=== PATIENT | female | born 1960 | race Caucasian/White ===

== ENCOUNTER 2023-07-19 20:33 | Outpatient (REF) | payer BC, SELFPAY ==
[2023-07-25 09:11] LABS: Age Gdln ACOG Testing Note (.); HPV Aptima Negative (Negative); IGP, Aptima HPV, rfx 16/18,45 Note (.)
== END 2023-07-19 20:34 | disposition home or self-care (01) ==
LOC: LAB 20:33
PROVIDERS: Visit Provider Physician Assistant
DX: Z01.419 Encounter for gynecological examination (general) (routine) without abnormal findings (principal)
CPT/HCPCS: 87624; G0145

== ENCOUNTER 2023-09-07 10:10 | Outpatient (OUT) | payer BC, SELFPAY ==
--- NOTE | 2023-09-07 10:11 | MM_ITS ---
Patient Name: JULIANO YAP MR#: [id number] : 1960 Exam Date: 09/07/2023 Ordering Doctor: DR Oswaldo Carrillo . RADIOLOGY REPORT PROCEDURE: MM TOMOSYNTHESIS SCREENING BI COMPARISON: MG MAMM SCREEN 3D DAWIT CAD, 08/22/2022. MG MAMM SCREEN 3D DAWIT CAD, 08/05/2021. MG MAMM SCREEN 3D DAWIT CAD, 07/23/2020. MG MAMM SCREEN DAWIT W CAD, 09/03/2015. INDICATIONS: Screening Calculator Name NCI Breast Cancer Risk Assessment Tool 5 Year Breast Cancer Risk Not Reported. Lifetime Breast Cancer Risk Not Reported. Personal Breast Cancer No Personal Ovarian Cancer No Treatments None Family Cancers None LOCATION: [facility] BREAST COMPOSITION: The breasts are extremely dense, which lowers the sensitivity of mammography. FINDINGS: DIAGNOSTIC CATEGORY 1--NEGATIVE. RIGHT BREAST: No significant suspicious finding. No significant change has occurred. LEFT BREAST: No significant suspicious finding. No significant change has occurred. RECOMMENDATIONS: ROUTINE MAMMOGRAM AND CLINICAL EVALUATION IN 12 MONTHS. PLEASE NOTE: A NORMAL MAMMOGRAM DOES NOT EXCLUDE THE POSSIBILITY OF BREAST CANCER. A CLINICALLY SUSPICIOUS PALPABLE LUMP SHOULD BE BIOPSIED. Dictated by: Zaid Bethea M.D. on 09/07/2023 at 15:39 Approved by: Zaid Bethea M.D. on 09/07/2023 at 15:42
== END 2023-09-07 10:11 | disposition home or self-care (01) ==
LOC: MAMMO 10:10
PROVIDERS: Visit Provider Obstetrics & Gynecology
DX: Z12.31 Encounter for screening mammogram for malignant neoplasm of breast (principal)
CPT/HCPCS: 77063; 77067

== ENCOUNTER 2024-07-22 15:08 | Outpatient (REF) | payer BC, SELFPAY ==
[2024-07-25 15:08] LABS: Age Gdln ACOG Testing Note (.); HPV Aptima Negative (Negative); IGP, Aptima HPV, rfx 16/18,45 Note (.)
== END 2024-07-22 15:09 | disposition home or self-care (01) ==
LOC: LAB 15:08
PROVIDERS: Visit Provider Physician Assistant
DX: Z01.419 Encounter for gynecological examination (general) (routine) without abnormal findings (principal)
CPT/HCPCS: 88175

== ENCOUNTER 2024-09-12 08:58 | Outpatient (OUT) | payer OTHER, SELFPAY ==
--- OUTSIDE RECORDS SUMMARY | 2024-07-22 08:53 | XMS_ITS ---
Author Name Auto Generated Organization [facility] Care Team Providers Care Marble Helper Name Role Phone [employer]CO CROFT Attending Unavailable JENN WESTBROOK Attending Unavailable PROBLEMS No Problem Records Found PROCEDURES No Procedure Records Found RESULTS No Result Records Found ALLERGIES No Allergies Records Found ENCOUNTERS ADMIT/DISCHARGE ACCOUNT NUMBER ADMITTING ENCOUNTER CLASS LOCATION SOURCE 07/22/2024/ 5 [id number] Ambulatory Building:[facility] 03/14/2024/ 4 [id number] Ambulatory Building:[facility] PAYERS ENCOUNTER GUARANTOR PAYER SUBSCRIBER SOURCE 07/22/2024 JULIANO Beebe HERRDOB: [id number] [place] [address]Yjp: () [facility] sanchez Number: [id number] tive Date:2024-04-24P Paul [place]AG[place] [id number] [address]LF: JULIANO Beebe HERRDOB: [id number] [place] [address] [facility] 03/14/2024 JULIANO SNYDERRDOB: [id number] [place] [address]Lhy: () Primary Insurance:[facility] licy Number: [id number] ctive Date:2021-04-24 JULIANO NELSONOB: [id number] [place] [address] [facility] EPIC
--- OUTSIDE RECORDS SUMMARY | 2024-09-12 08:59 | XMS_ITS | Encounter Summary ---
Author Organization [facility] Address [address] [place] [address] Care Team Providers Care Manager Transportation Planning Name Role Phone Edmundo Walker MD Primary Care Provider [phone] Encounter Details Date Type Department Care Team (Late st Contact Info) Description 07/30/2024 Orders Only [facility] [address] [place] [address] Concha Stockton LPN [address] [facility] [place] [address] Social History Tobacco Use Types Packs/Day Years Used Date Smoking Tobacco: Never Smokeless Tobacco: Never Alcohol Use Standard Drinks/Week Comments Yes 0 (1 standard drink = 0.6 oz pure alcohol) Caffeine intake: 1-2 cups per day B1300 Health Literacy Answer Date Recor ded How often do you need to hav e someone help you when you read instructions, pamphlets, or other written material from your doctor or pharmacy? Never 03/07/2024 Social Connection and Isolat ion Panel [NHANES] Answer Date Recorded In a typical week, how many times do you talk on the phone with family, friends, or neighbors? More than three times a week 03/07/2024 How often do you get togethe r with friends or relatives? More than three times a week 03/07/2024 How often do you attend chur ch or yazidism services? 1 to 4 times per year 03/07/2024 Do you belong to any clubs o r organizations such as confucianism groups, unions, fraternal or athletic groups, or school groups? No 03/07/2024 How often do you attend meet ings of the clubs or organizations you belong to? Never 03/07/2024 Are you , , di vorced, , never , or living with a partner? 03/07/2024 AUDIT-C Answer Date Recorded Q1: How often do you have a drink containing alc ohol? Monthly or less 03/07/2024 Q2: How many drinks containi ng alcohol do you have on a typical day when you are drinking? 1 or 2 03/07/2024 Q3: How often do you have si x or more drinks on one occasion? Never 03/07/2024 Overall Financial Resource Strain (CARDIA) Answe r Date Recorded How hard is it for you to pa y for the very basics like food, housing, medical care, and heating? Not hard at all 03/07/2024 [facility] - Occupational Stress Questionnaire Answer Date Recorded Do you feel stress - tense, restless, nervous, or anxious, or unable to sleep at night because your mind is troubled all the time - these days? Not at all 03/07/2024 Exercise Vital Sign Answer Date Recorde d On average, how many days pe r week do you engage in moderate to strenuous exercise (like a brisk walk)? 3 days 03/07/2024 On average, how many minutes do you engage in exercise at this level? 60 min 03/07/2024 Hunger Vital Sign Answer Date Recorded Within the past 12 months, y ou worried that your food would run out before you got the money to buy more. Never true 03/07/20 24 Within the past 12 months, t he food you bought just didn't last and you didn't have money to get more. Never true 03/07/2024 PRAPARE - Transportation Answer Date Re corded In the past 12 months, has l ack of transportation kept you from medical appointments or from getting medications? No 02/22 In the past 12 months, has l ack of transportation kept you from meetings, work, or from getting things needed for daily living? No 03/07/2024 Housing Stability Vital Sign Answer Keanu e Recorded In the last 12 months, was t here a time when you were not able to pay the mortgage or rent on time? No 03/07/2024 Number of Times Moved in the Last Year Not on fi le 03/07/2024 At any time in the past 12 m [facility], were you homeless or living in a senior care (including now)? No 03/07/2024 Comments No Sex and Gender Information Value Date Recorded Sex Assigned at Female 10/05/2022 8:24 PM EDT Legal Sex Female 7:26 PM EDT Gender Identity Female 10/05/2022 8:24 PM EDT Sexual Orientation Not on file documented as of this encounter Plan of Treatment Upcoming Encounters Date Type Department Care Team (Late st Contact Info) Description 07/24/2025 9:00 AM EDT Office Visit [facility] [address] [place] [address] Priyanka Stern PA [address] [place] [address] documented as of this encounter Procedures Procedure Name Priority Date/Time Associated Diagnosis Comments PAP SMEAR Routine 07/22/2024 12:00 AM EDT documented in this encounter Results * Pap Smear (07/22/2024 12:00 AM EDT) Swab Cervical swab / Unknown us [facility] Gerardo Nurse LAB CYTOLOGY ORDERABLES Final Result EXTERNAL LAB documented in this encounter Visit Diagnoses Not on filedocumented in this encounter Care Teams Manager Transportation Planning Relationship Specialty Start Date End Date Edmundo Walker MD [address] [place] [address] PCP - General 07/13/23 documented as of this encounter
--- OUTSIDE RECORDS SUMMARY | 2024-09-12 08:59 | XMS_ITS | Encounter Summary ---
Author Organization [facility] Address [address] [facility] [address] [place] [address] Care Team Providers Care Oceanologist Name Role Phone Edmundo Walker MD Primary Care Provider [phone] Edmundo Walker MD Unavailable Encounter Details Date Type Department Care Team (Late st Contact Info) Description 03/14/2024 Orders Only [facility] [address] [place] [address] Edmundo Walker MD [address] [place] [address] Social History Tobacco Use Types Packs/Day Years [...] week 03/07/2024 How often do you attend [facility] or anabaptism services? 1 to 4 times per year 03/07/2024 Do you belong to any clubs o r organizations such as pentecostal groups, unions, fraternal or athletic groups, or [...] and heating? Not hard at all 03/07/2024 [facility] - Occupational Stress [...] any time in the past 12 m [facility], were you homeless or living in a mcfp (including now)? No 03/07/2024 Comments Unknown Sex and Gender Information Value Date Recorded Sex Assigned at Female 10/05/2022 8:24 PM EDT Legal Sex Female 7:26 PM EDT Gender Identity Female 10/05/2022 8:24 PM EDT Sexual Orientation Not on file documented as of this encounter Plan of Treatment Upcoming Encounters Date Type Department Care Team (Late st Contact Info) Description 07/24/2025 9:00 AM EDT Office Visit [facility] [address] [place] [address] Priyanka Stern PA [address] [place], [place] [id number] documented as of this encounter Procedures Procedure Name Priority Date/Time Associated Diagnosis Comments SCANNED LABS Routine 03/14/2024 4:04 PM EST documented in this encounter Results * SCANNED LABS (03/14/2024 4:04 PM EST) Edmundo Walker MD LAB CHG PERFORMABLES Final Resul t documented in this encounter Visit Diagnoses Not on filedocumented in this encounter Care Teams Oceanologist Relationship Specialty Start Date End Date Edmundo Walker MD [address] [place] [phone] PCP - General 07/13/23 Edmundo Walker MD [address] [place] [address] PCP - [place] [employer] 04/24/24 documented as of this encounter
--- OUTSIDE RECORDS SUMMARY | 2024-09-12 08:59 | XMS_ITS | Encounter Summary ---
Author Organization [facility] Address [address] [facility] [place] [address] Care Team Providers Care Electrical Inspector Name Role Phone Edmundo Walker MD Primary Care Provider Edmundo Walker MD Unavailable Encounter Details Date Type Department Care Team (Late st Contact Info) Description 09/07/2023 Clinisync Result Encounter [facility] External Department Unsolicited Oswaldo Carrillo, DO [address] [address] [place], [place] [id number] Social History Tobacco Use Types Packs/Day Years Used Date Smoking Tobacco: Never Alcohol Use Standard Drinks/Week Comments Yes 0 (1 standard drink = 0.6 oz pure alcohol) Caffeine intake: 1-2 cups per day AUDIT-C Answer Date Recorded Q1: How often do you have a drink containing alc ohol? 2-3 times a week 07/18/2023 Q2: How many drinks containi ng alcohol do you have on a typical day when you are drinking? 1 or 2 07/18/2023 Q3: How often do you have si x or more drinks on one occasion? Never 07/18/2023 Comments Unknown Sex and Gender Information Value [...] EDT Office Visit [facility] [address] [address] Priyanka Stern PA [address] [place] [address] documented as of this encounter Procedures Procedure Name Priority Date/Time Associated Diagnosis Comments MM TOMOSYNTHESIS SCREENING BI 09/07/2023 3:42 PM EDT documented in this encounter Results * MM TOMOSYNTHESIS SCREENING BI (09/07/2023 3:42 PM EDT) Anatomical Region Laterality Modality Other 09/07/2023 3:42 PM EDT Narrative 09/07/2023 3:43 PM EDT [address] [address] Mammography Report Signed Patient: LEE ANN YAP MR#: [id number] : 1960 Acct:[id number] Age/Sex: 63 / F ADM Date: 09/07/23 Loc: MAMMO Attending Dr: Oswaldo Carrillo D.O. Ordering Physician: Oswaldo Carrillo D.O. Results: Date of Service: 09/07/23 Follow Up: Procedure(s): MM tomosynthesis screening BI Accession Number(s): [id number] cc: Oswaldo Carrillo D.O.; Physician,Non-Staff M.D. Patient Name: LEE ANN YAP MR#: [id number] : 1960 Exam Date: 09/07/2023 Ordering Doctor: DR Oswaldo Carrillo . RADIOLOGY REPORT PROCEDURE: MM TOMOSYNTHESIS SCREENING BI COMPARISON: MG MAMM SCREEN 3D DAWIT CAD, 08/22/2022. MG MAMM SCREEN 3D DAWIT CAD, 08/05/2021. MG MAMM SCREEN 3D DAWIT CAD, 07/23/2020. MG MAMM SCREEN DAWIT W CAD, 09/03/2015. INDICATIONS: Screening Calculator Name NCI Breast Cancer Risk Assessment Tool 5 Year Breast Cancer Risk Not Reported. Lifetime Breast Cancer Risk Not Reported. Personal Breast Cancer No Personal Ovarian Cancer No Treatments None Family Cancers None LOCATION: [facility] BREAST COMPOSITION: The breasts are extremely dense, which lowers the sensitivity of mammography. FINDINGS: DIAGNOSTIC CATEGORY 1--NEGATIVE. RIGHT BREAST: No significant suspicious finding. No significant change has occurred. LEFT BREAST: No significant suspicious finding. No significant change has occurred. RECOMMENDATIONS: ROUTINE MAMMOGRAM AND CLINICAL EVALUATION IN 12 MONTHS. PLEASE NOTE: A NORMAL MAMMOGRAM DOES NOT EXCLUDE THE POSSIBILITY OF BREAST CANCER. A CLINICALLY SUSPICIOUS PALPABLE LUMP SHOULD BE BIOPSIED. Dictated by: Zaid Bethea M.D. on 09/07/2023 at 15:39 Approved by: Zaid Bethea M.D. on 09/07/2023 at 15:42 Dictated By: Zaid Bethea M.D. Signed By: 09/07/23 1543 DD/ 1542 TD/TT: Orthopaedic Physician Assistant: Procedure Note Radiology, Radiologist, MD - 09/07/2023 [place] [address] Mammography Report Signed Patient: LEE ANN YAP SMR#: [id number] : 1960cct:[id number] Age/Sex: 63 / FADM Date: 09/07/23 Loc: MAMMO Attending Dr: Oswaldo Carrillo D.O. Ordering Physician: Oswaldo Carrillo D.O.Results: Date of Service: 09/07/23Follow Up: Procedure(s): MM tomosynthesis screening BI Accession Number(s): [id number] cc: Oswaldo Carrillo D.O.; Physician,Non-Staff Man Patient Name: LEE ANN YAP MR#: [id number] : 1960 Exam Date: 09/07/2023 Ordering Doctor: DR Oswaldo Carrillo . RADIOLOGY REPORT PROCEDURE: MM TOMOSYNTHESIS SCREENING BI COMPARISON: MG MAMM SCREEN 3D DAWIT CAD, 08/22/2022. MG MAMM SCREEN 3DBIL CAD, 08/05/2021. MG MAMM SCREEN 3D DAWIT CAD, 07/23/2020. MG MAMM SCREEN BILW CAD, 09/03/2015. INDICATIONS: Screening Calculator Name NCI Breast Cancer Risk Assessment Tool 5 Year Breast Cancer Risk Not Reported. Lifetime Breast Cancer Risk Not Reported. Personal Breast Cancer No Personal Ovarian Cancer No Treatments None Family Cancers None LOCATION: [facility] BREAST COMPOSITION: The breasts are extremely dense, which lowers the sensitivity of mammography. FINDINGS: DIAGNOSTIC CATEGORY 1--NEGATIVE. RIGHT BREAST: No significant suspicious finding. No significant changehas occurred. LEFT BREAST: No significant suspicious finding. No significant changehas occurred. RECOMMENDATIONS: ROUTINE MAMMOGRAM AND CLINICAL EVALUATION IN 12 MONTHS. PLEASE NOTE: A NORMAL MAMMOGRAM DOES NOT EXCLUDE THE POSSIBILITY OFBREAST CANCER. A CLINICALLY SUSPICIOUS PALPABLE LUMP SHOULD BE BIOPSIED. Dictated by: Zaid Bethea M.D. on 09/07/2023 at 15:39 Approved by: Zaid Bethea M.D. on 09/07/2023 at 15:42 Dictated By: Zaid Bethea M.D. Signed By:09/07/23 1543 DD/ 1542 TD/TT: Orthopaedic Physician Assistant: [facility] Gerardo DO [facility] Final Result documented in this encounter Visit Diagnoses Not on filedocumented in this encounter Care Teams Electrical Inspector Relationship Specialty Start Date End Date Edmundo Walker MD [address] [place] [address] PCP - General 07/13/23 Edmundo Walker MD [address] [place] [address] PCP - [place] [employer] 04/24/24 documented as of this encounter
--- OUTSIDE RECORDS SUMMARY | 2024-09-12 08:59 | XMS_ITS | Clinical Summary ---
Author Organization [employer] Address [id number] [address] [place] [address] Care Team Providers Care As400 Operator Name Role Phone Edmundo Walker MD Primary Care Provider [phone] Allergies No known active allergies Medications calcium carbonate (OS-MIMI) 500 mg calcium (1,250 mg) chewable tablet Calcium 500 Active cholecalciferol , vitamin D3, 10 mcg (400 unit) capsule Vitamin D3 Activ e alendronate (FOSAMAX) 70 mg tablet 1 Active multivitamin (DAILY VITAMIN ORAL) Take by mouth daily. Osteomatrix vitamin daily Active Active Problems No known active problems Family History Medical History Relation Name Comments Lung disease Father No Known Problems Mother Breast cancer Neg Hx Relation Name Status Comments Father Mother Alive Social History Tobacco Use Types Packs/Day Years Used Date Smoking Tobacco: Never Smokeless Tobacco: Never Alcohol Use Standard Drinks/Week Comments Not Currently 0 (1 standard drink = 0.6 oz pur e alcohol) rare Childcare Answer Date Recorded Childcare Unknown 10/03/2018 Employment Answer Date Recorded Employment Unknown 10/03/2018 Purpose - Life Answer Date Recorded Purpose and direction in life Unknown Comments No Sex and Gender Information Value Date Recorded Sex Assigned at Not on file Legal Sex Female 11:30 AM EDT Gender Identity Not on file Sexual Orientation Not on file Last Filed Vital Signs Vital Sign Reading Time Taken Comments Blood Pressure 103/68 01/03/2022 11:29 AM EDT Pulse 62 01/03/2022 11:29 AM EDT Temperature 36.7 C (98.1 F) 01/03/2022 8:57 AM EDT Respiratory Rate 16 01/03/2022 11:29 AM EDT Oxygen Saturation 96% 01/03/2022 11:05 AM EDT Inhaled Oxygen Concentration - - Weight 49.9 kg (110 lb) 01/03/2022 8:57 AM EDT Height 157.5 cm (5' 2 ) 01/03/2022 8:57 AM EDT Body Mass Index 20.12 01/03/2022 8:57 AM EDT Plan of Treatment Health Maintenance Due Date Last Done Comments Depression Screening 1971 Tobacco Screening 1971 DTaP,Tdap and Td Vaccines (1 - Tdap) 1978 Zoster (Shingles) Vaccine (1 of 2) 2009 Adult BMI Screening 01/03/2023 01/03/2022 COVID-19 Vaccine (2023-2 5 season) 2023 05/05/2021, 07/29/2020, 07/08/2020 Fall Risk Screening 01/21/2024 Influenza Vaccine 12/23/2024 02/28/2019 Colonoscopy 01/04/2032 01/03/2022, 01/03/2022 Pap Smear Discontinued 07/19/2023 Medical Devices Not on file Procedures Procedure Name Priority Date/Time Associated Diagnosis Comments COLONOSCOPY 01/03/2022 10:08 AM EDT from Last 3 Months or Most Recently Relevant to Health Maintenance Results * Colonoscopy (01/03/2022 10:08 AM EDT) 01/03/2022 10:0 8 AM EDT Narrative PM CARDIOVASCULAR - 01/03/2022 11:[address] [facility] Patient Name: Lee Ann Mensah Procedure Date No Time: 01/03/2022 CSN : [id number] Date of : 1960 Admit Type: Outpatient Age: 61 Room: [place] [address] Gender: Female Note Status: Finalized Attending MD: Walt Culp DO Procedure: Colonoscopy Indications: Screening for colorectal malignant neoplasm Providers: Walt Culp DO Referring MD: Walt Culp DO Medicines: Propofol per Anesthesia Complications: No immediate complications. Procedure: After I obtained informed consent, the scope was passed under direct vision. Throughout the procedure, the patient's blood pressure, pulse, and oxygen saturations were monitored continuously. The [facility] [id number] # [id number] PEDIATRIC COLONOSCOPE was introduced through the anus and advanced to the cecum, identified by the appendiceal orifice, ileocecal valve and palpation. The colonoscopy was performed with moderate difficulty due to a tortuous colon. Successful completion of the procedure was aided by applying abdominal pressure. The patient tolerated the procedure well. The quality of the bowel preparation was good. Findings: The perianal and digital rectal examinations were normal. Multiple large-mouthed diverticula were found in the sigmoid colon, descending colon, transverse colon and ascending colon. The exam was otherwise without abnormality on direct and retroflexion views. Estimated Blood Loss: Estimated blood loss: none. Impression: - Diverticulosis in the sigmoid colon, in the descending colon, in the transverse colon and in the ascending colon. - The examination was otherwise normal on direct and retroflexion views. - No specimens collected. Recommendation: - Discharge patient to home. - Patient has a contact number available for emergencies. The signs and symptoms of potential delayed complications were discussed with the patient. Return to normal activities tomorrow. Written discharge instructions were provided to the patient. - High fiber diet for the rest of the patient's life. - Repeat colonoscopy in 10 years for screening purposes. - Return to my office PRN. Procedure Code(s): --- Professional --- G0121, Colorectal cancer screening; colonoscopy on individual not meeting criteria for high risk Diagnosis Code(s): --- Professional --- Z12.11, Encounter for screening for malignant neoplasm of colon K57.30, Diverticulosis of large intestine without perforation or abscess without bleeding CPT copyright 2020 [employer]. All rights reserved. The codes documented in this report are preliminary and upon machine rough rounder review may be revised to meet current compliance requirements. DO Walt Umaña DO 01/03/2022 11:04:00 AM Number of Addenda: 0 Note Initiated On: 01/03/2022 10:08 AM Procedure Note Walt Culp DO - 01/03/2022 [facility] Patient Name: Lee Ann Mensah Procedure Date No Time: 01/03/2022 CSN : [id number] Date of : 1960 Admit Type: Outpatient Age: 61 Room: [facility] Gender: Female Note Status: Finalized Attending MD: Walt Culp DO Procedure: Colonoscopy Indications: Screening for colorectal malignant neoplasm Providers: Walt Culp DO Referring MD: Walt uClp DO Medicines: Propofol per Anesthesia Complications: No immediate complications. Procedure: After I obtained informed consent, the scope was passed under direct vision. Throughout theprocedure, the patient's blood pressure, pulse, and oxygen saturations were monitored continuously. [id number] # [id number] PEDIATRIC COLONOSCOPE was introduced through the anus and advanced to thececum, identified by the appendiceal orifice, ileocecalvalve and palpation. The colonoscopy was performed with moderate difficulty due to a tortuous colon. Successful completion of the procedure was aided by applying abdominal pressure. The patient toleratedthe procedure well. The quality of the bowelpreparation was good. Findings: The perianal and digital rectal examinations were normal. Multiple large-mouthed diverticula were found in the sigmoid colon, descending colon, transverse colon and ascending colon. The exam was otherwise without abnormality on direct and retroflexion views. Estimated Blood Loss: Estimated blood loss: none. Impression: - Diverticulosis in the sigmoid colon, in the descending colon, in the transverse colon and inthe ascending colon. - The examination was otherwise normal on directand retroflexion views. - No specimens collected. Recommendation: - Discharge patient to home. - Patient has a contact number available for emergencies. The signs and symptoms of potential delayed complications were discussed with thepatient. Return to normal activities tomorrow. Written discharge instructions were provided to thepatient. - High fiber diet for the rest of the patient'slife. - Repeat colonoscopy in 10 years for screening purposes. - Return to my office PRN. Procedure Code(s): --- Professional --- G0121, Colorectal cancer screening; colonoscopy on individual not meeting criteria for high risk Diagnosis Code(s): --- Professional --- Z12.11, Encounter for screening for malignant neoplasm of colon K57.30, Diverticulosis of large intestine without perforation orabscess without bleeding CPT copyright 2020 [employer]. All rights reserved. The codes documented in this report are preliminary and upon machine rough rounder reviewmay be revised to meet current compliance requirements. DO Walt Umaña DO 01/03/2022 11:04:00 AM Number of Addenda: 0 Note Initiated On: 01/03/2022 10:08 AM Walt Culp DO GI PROCEDURE ORDERABLES Fin al Result PM CARDIOVASCULAR from Last 3 Months or Most Recently Relevant to Health Maintenance [place] [address] [address] [address] Care Teams As400 Operator Relationship Specialty Start Date End Date Edmundo Walker MD PCP - General Family Medicine 09/28/19
--- OUTSIDE RECORDS SUMMARY | 2024-09-12 08:59 | XMS_ITS | Clinical Summary ---
Author Organization [facility] Address [address] [place] [address] Care Team Providers Care Calf Skinner Name Role Phone Unavailable Primary Care Provider Unavailabl e Social History Tobacco Use Types Packs/Day Years Used Date Smoking Tobacco: Never Assessed Sex and Gender Information Value Date Recorded Sex Assigned at Not on file Gender Identity Not on file Sexual Orientation Not on file Last Filed Vital Signs Vital Sign Reading Time Taken Comments Blood Pressure 115/82 03/15/2021 1:25 PM EST Pulse 84 03/15/2021 1:25 PM EST Temperature 36.6 C (97.8 F) 03/15/2021 1:25 PM EST Respiratory Rate 16 03/15/2021 1:25 PM EST Oxygen Saturation 100% 03/15/2021 1:25 PM EST Inhaled Oxygen Concentration - - Weight 52.2 kg (115 lb) 03/15/2021 1:21 PM EST Height 157.5 cm (5' 2 ) 03/15/2021 1:21 PM EST Body Mass Index 21.03 03/15/2021 1:21 PM EST Plan of Treatment Not on file
--- OUTSIDE RECORDS SUMMARY | 2024-09-12 08:59 | XMS_ITS | Referral Summary ---
Author Organization [facility] Address [address] [place] [address] Care Team Providers Care Office Assistant Name Role Phone Unavailable Primary Care Provider [...]
--- OUTSIDE RECORDS SUMMARY | 2024-09-12 08:59 | XMS_ITS | Clinical Summary ---
Author Organization [facility] Address [address] [place] [place] [address] Care Team Providers Care Lawn Mower Repairer Name Role Phone Edmundo Walker MD Primary Care Provider [phone] Allergies No known active allergies Medications alendronate (Fosamax) 70 MG tabletIndications :Osteoporosis, unspecified osteoporosis type, unspecified pathological fracture presence (CMS/HCC) TAKE 1 TABLET BY MOUTH 1 TIME A WEEK 30 MINUTES BEFORE FIRST FOOD OR BEVERAGE OR MEDICINE OF THE DAY WITH WATER 12 tablet 3 5 Active Active Problems Problem Noted Date Diagnosed Date Osteoporosis 03/14/2024 Annual physical exam 03/14/2024 Assessment & Plan (03/14/2024 11:40 AM EST): Reviewed labs. Discussed proper diet and regular aerobic exercise. Need aerobic exercise 5-6 days a week for 30 minutes at a time. Smaller portions and limit total calories. Colonoscopy every 10 years. Tetanus every 10 years. Advised not to smoke. Discussed daily Aspirin therapy. Encounters Date Type Department Care Team Description 07/30/2024 Orders Only [facility] [address] [place] [address] Concha Stockton LPN 07/22/2024 9:00 AM EDT Office Visit [facility] [address] [place] [address] Priyanka Stern PA Well woman exam with routine gynecological exam; Breast cancer screening by mammogram; Encounter for screening for osteoporosis; Age-related osteoporosis without current pathological fracture (CMS/HCC) 07/22/2024 Clinisync Result Encounter [facility] External Department Unsolicited Priyanka Stern PA 07/22/2024 Bamboo flowsheet [facility] [address] [place] [address] Priyanka Stern PA from Last 3 Months Family History Medical History Relation Name Comments COPD Father Cancer Father Hyperlipidemia Mother Hypertension Mother Melanoma Neg Hx Relation Name Status Comments Daughter Alive Father Mother Alive Son Alive Social History Tobacco Use Types Packs/Day Years Used Date Smoking Tobacco: Never Smokeless Tobacco: Never Tobacco Cessation:Counseling Given: Not Answered Alcohol Use Standard Drinks/Week Comments Yes 0 [...] often do you attend chur ch or gnosticism services? 1 to 4 times per year 03/07/2024 Do you belong to any clubs o r organizations such as orthodoxy groups, unions, fraternal or athletic groups, or [...] and heating? Not hard at all 03/07/2024 [facility] [place] of Occupat ional Health - Occupational Stress [...] any time in the past 12 m [facility], were you homeless or living in a correction (including now)? No 03/07/2024 Comments No Sex and Gender Information Value Date Recorded Sex Assigned at Female 10/05/2022 8:24 PM EDT Legal Sex Female 7:26 PM EDT Gender Identity Female 10/05/2022 8:24 PM EDT Sexual Orientation Not on file Last Filed Vital Signs Vital Sign Reading Time Taken Comments Blood Pressure 114/70 07/22/2024 9:10 AM EDT Pulse 78 03/14/2024 10:34 AM EST Temperature 36.6 C (97.8 F) 03/14/2024 10:34 AM EST Respiratory Rate 20 03/14/2024 10:34 AM EST Oxygen Saturation 98% 03/14/2024 10:34 AM EST Inhaled Oxygen Concentration - - Weight 54 kg (119 lb) 07/22/2024 9:10 AM EDT Height 157.5 cm (5' 2 ) 03/14/2024 10:34 AM EST Body Mass Index 21.77 03/14/2024 10:34 AM EST Plan of Treatment Upcoming Encounters Date Type Department Care Team (Late st Contact Info) Description 07/24/2025 9:00 AM EDT Office Visit [facility] [address] [place] [address] Priyanka Stern PA [address] [place] [address] Health Maintenance Due Date Last Done Comments CT Colonography 1960 FIT-DNA 1960 FIT 1960 FOBT 1960 Sigmoidoscopy 1960 Pneumococcal Vaccine: 65+ Ye ars (1 of 1 - PCV) 2009 Mammogram 09/06/2024 09/07/2023, 05/0 04/2022, 07/26/2017, Additional history exists Influenza Vaccine (Season Ended) 2024 02/29/20 19 Pap Smear 07/23/2027 07/22/2024, 07/19/2023 Cervical Cancer Screening 07/18/2028 HPV/Cotest 07/18/2028 Colonoscopy 01/04/2032 01/03/2022, 12/23, 01/03/2022 Colorectal Cancer Screening 01/04/2032 Procedures Procedure Name Priority Date/Time Associated Diagnosis Comments POCT URINALYSIS DIPSTICK Routine 07/22/2024 9:15 AM EDT Well woman exam with routine gynecological exam IGP,APTIMA HPV,AGE GDLN Routine 07/22/2024 9:00 AM EDT PAP SMEAR Routine 07/22/2024 12:00 AM EDT MM TOMOSYNTHESIS SCREENING BI 09/07/2023 3:42 PM EDT from Last 3 Months or Most Recently Relevant to Health Maintenance Results * POCT urinalysis dipstick manually resulted (07/22/2024 9:15 AM EDT) Color, UA Yellow Clarity, UA Clear Glucose, UA Negative Negative - 2000(110) ++++ mg/dL Bilirubin, UA Negative Negative - 4(70) +++ mg/dL Ketones, UA Negative Negative - 160(16) ++++ mg/dL Spec Grav, UA 1.005 1 - 1.03 Blood, UA Positive Negative - 50 Alexi/mcL Comment:trace pH, UA 5.5 5 - 9 Protein, UA Negative Negative - 2000(20) ++++ mg/dL Urobilinogen, UA 0.2 0.2 - 12 mg/dL Leukocytes, UA Trace Negative - 500+++ Annmarie/mcL Nitrite, UA Negative Negative - Positive Urine 07/22/2024 9:15 AM EDT Priyanka MARTINO POINT OF CARE TEST ENTER/EDIT OR DERABLES Final Result * IGP,APTIMA HPV,AGE GDLN (07/22/2024 9:00 AM EDT) AGE GDLN ACOG TESTING Note . [facility] Comment: TESTS RESULT FLAG UNITS REF RANGE LAB Clinician Provided Cytology Information Source.............Cervix;Endocervix No. of containers..01 ThinPrep Vial Age Algo ACOG Ursula... 30-65 01 FLAG LEGEND: L-Low Normal,H-High Normal,LL-Alert Low,HH-Alert High <-Panic Low,>-Panic High,A-Abnormal,AA-Critical Abnormal Performed at: 01 =G [facility] [address] [place] [address] Janee Chacon MD, IGP, APTIMA HPV, RFX 16/18,45 Note . [facility] Comment: TESTS RESULT FLAG UNITS REF RANGE LAB DIAGNOSIS: 02 NEGATIVE FOR INTRAEPITHELIAL LESION OR MALIGNANCY. CELLULAR CHANGES ASSOCIATED WITH ATROPHY ARE PRESENT. Specimen adequacy: 02 Satisfactory for evaluation. Endocervical and/or squamous metaplastic cells (endocervical component) are present. Performed by: Mikey Hale, Maintenance Construction Helper ([facility]) . 02 Note: Note 02 The Pap smear is a screening test designed to aid in the detection of premalignant and malignant conditions of the uterine cervix. It is not a diagnostic procedure and should not be used as the sole means of detecting cervical cancer. Both false-positive and false-negative reports do occur. Test Methodology: Note 02 The [employer](R) Pie Maker was unable to read this specimen. Therefore a manual review was performed. FLAG LEGEND: L-Low Normal,H-High Normal,LL-Alert Low,HH-Alert High <-Panic Low,>-Panic High,A-Abnormal,AA-Critical Abnormal Performed at: [address] [address] Janee Chacon MD, HPV Genotype Reflex Note 02 Criteria not met, HPV Genotype not performed. Criteria not met, HPV Genotype not performed. HPV APTIMA Negative Negative [facility] Comment: This nucleic acid amplification test detects fourteen high- risk HPV types (16,18,31,33,35,39,45,51,52,56,58,59,66,68) without differentiation. Performed at: =[address] [id number] Certified Orthotist: Janee Chacon MD, Phone: [phone] Performed at: [address] [id number] Certified Orthotist: Janee Chacon MD, Phone: [phone] 07/22/2024 9:00 AM EDT 07/22/2024 3:10 PM EDT Narrative CASSANDRAISYNC - 07/25/2024 3:08 PM EDT BRUSH-SPATULA CERVIX ENDOCERVIX us Priyanka MARTINO LAB BLOOD ORDERABLES Final Resul t Performing Organization Address [facility] Co de Phone Number [facility] * Pap Smear (07/22/2024 12:00 AM EDT) Swab Cervical swab / Unknown us [facility]oms Milka Carrillo Nurse LAB CYTOLOGY ORDERABLES Final Result Performing Organization Address [facility] Co de Phone Number EXTERNAL LAB * MM TOMOSYNTHESIS SCREENING BI (09/07/2023 3:42 PM EDT) Anatomical Region Laterality Modality Other 09/07/2023 3:42 PM EDT Narrative 09/07/2023 3:43 [place] [address] Mammography Report Signed Patient: LEE ANN YAP MR#: [id number] : 1960 Acct:[id number] Age/Sex: 63 / F ADM Date: 09/07/23 Loc: MAMMO Attending Dr: Oswaldo Carrillo D.O. Ordering Physician: Oswaldo Carrillo D.O. Results: Date of Service: 09/07/23 Follow Up: Procedure(s): MM tomosynthesis screening BI Accession Number(s): [id number] cc: Oswaldo Carrillo D.O.; Physician,Non-Staff Man Patient Name: LEE ANN YAP MR#: [id number] : 1960 Exam Date: 09/07/2023 Ordering Doctor: [...] Treatments None Family Cancers None LOCATION: [facility] BREAST COMPOSITION: The breasts are extremely [...] Signed By: 09/07/23 1543 DD/ 1542 TD/TT: Refinery Operator Assistant: Procedure Note Radiology, Radiologist, MD - 09/07/2023 [facility] [place] [id number] Mammography Report Signed Patient: LEE ANN YAP SMR#: [id number] : 9Acct:[id number] Age/Sex: 63 / FADM Date: 09/07/23 Loc: MAMMO Attending Dr: Oswaldo Carrillo D.O. Ordering Physician: Oswaldo Carrillo D.O.Results: Date of Service: 09/07/23Follow Up: Procedure(s): MM tomosynthesis screening BI Accession Number(s): [id number] cc: Oswaldo Carrillo D.O.; Physician,Non-Staff Man Patient Name: LEE ANN YAP MR#: [id number] : 1960 Exam Date: 09/07/2023 Ordering Doctor: [...] Treatments None Family Cancers None LOCATION: [facility] BREAST COMPOSITION: The breasts are extremely [...] M.D. Signed By:09/07/23 1543 DD/ 1542 TD/TT: Refinery Operator Assistant: us Oswaldo Gerardo DO [facility] Final Result from Last 3 Months or Most Recently Relevant to Health Maintenance Insurance [employer] Care Teams Lawn Mower Repairer Relationship Specialty Start Date End Date Edmundo Walker MD [address] [place] [id number] PCP - General 07/13/23
--- NOTE | 2024-09-12 09:03 | MM_ITS ---
Patient Name: JULIANO YAP MR#: [id number] : 1960 Exam Date: 09/12/2024 Ordering Doctor: SALENA CROFT . RADIOLOGY REPORT PROCEDURE: MM TOMOSYNTHESIS SCREENING BI COMPARISON: MM TOMOSYNTHESIS SCREENING BI, 09/07/2023. MG MAMM SCREEN 3D DAWIT CAD, 08/22/2022. MG MAMM SCREEN 3D DAWIT CAD, 08/05/2021. MG MAMM SCREEN DAWIT W CAD, 09/03/2015. INDICATIONS: Screening Calculator Name NCI Breast Cancer Risk Assessment Tool 5 Year Breast Cancer Risk Not Reported. Lifetime Breast Cancer Risk Not Reported. Personal Breast Cancer No Personal Ovarian Cancer No Treatments None Family Cancers None LOCATION: [facility] BREAST COMPOSITION: The breasts are heterogeneously dense,which may obscure small masses. FINDINGS: RIGHT BREAST: No significant suspicious finding. Similar focal asymmetries are present. LEFT BREAST: No significant suspicious finding. Benign-appearing lymph nodes are noted along the left chest wall are in DIAGNOSTIC CATEGORY 2--BENIGN FINDING: RECOMMENDATIONS: ROUTINE MAMMOGRAM AND CLINICAL EVALUATION IN 12 MONTHS. PLEASE NOTE: A NORMAL MAMMOGRAM DOES NOT EXCLUDE THE POSSIBILITY OF BREAST CANCER. A CLINICALLY SUSPICIOUS PALPABLE LUMP SHOULD BE BIOPSIED. Dictated by: Mikel Castro MD on 09/12/2024 at 14:17 Approved by: Mikel Castro MD on 09/12/2024 at 14:29
== END 2024-09-12 08:59 | disposition home or self-care (01) ==
LOC: MAMMO 08:58
PROVIDERS: Visit Provider Physician Assistant
DX: Z12.31 Encounter for screening mammogram for malignant neoplasm of breast (principal); Z13.820 Encounter for screening for osteoporosis; M81.0 Age-related osteoporosis without current pathological fracture; M85.80 Other specified disorders of bone density and structure, unspecified site
CPT/HCPCS: 77063; 77067; 77080